=== PATIENT | male | born 1965 | race Two or more races ===

== ENCOUNTER 2021-05-04 07:46 | Emergency (ER) | payer OTHER ==
[~2021-05-04] VITALS: Ht 170.2 cm; Wt 86.2 kg
== END 2021-05-04 09:56 | disposition left against medical advice (07) ==
LOC: ER 07:46
DX: S59.912A Unspecified injury of left forearm, initial encounter (principal); X58.XXXA Exposure to other specified factors, initial encounter; Y92.89 Other specified places as the place of occurrence of the external cause; Z91.81 History of falling

== ENCOUNTER 2021-07-03 08:19 | Outpatient (CLI) | payer BC | END 2021-07-03 08:36 | disposition home or self-care (01) | LOC: RAD 08:19 | PROVIDERS: ATTEND Orthopaedic Surgery | DX: M25.532 Pain in left wrist (principal) ==

== ENCOUNTER 2021-07-29 14:13 | Outpatient (CLI) | payer BC | END 2021-07-29 14:20 | disposition home or self-care (01) | LOC: RAD 14:13 | PROVIDERS: ATTEND Orthopaedic Surgery Hand Surgery | DX: Z01.812 Encounter for preprocedural laboratory examination (principal) ==

== ENCOUNTER 2021-08-29 16:07 | Outpatient (CLI) | payer BC | END 2021-08-29 16:08 | disposition home or self-care (01) | LOC: RAD 16:07 | PROVIDERS: ATTEND Orthopaedic Surgery Hand Surgery | DX: S52.522A Torus fracture of lower end of left radius, initial encounter for closed fracture (principal) ==